=== PATIENT | female | born 2000 | race Caucasian/White ===

== ENCOUNTER 2020-01-02 14:01 | Emergency (ER) | payer SELFPAY ==
[2020-01-02] MEDS ORDERED: METOCLOPRAMIDE HCL 10 MG TABLET PO ONE (14:24)
--- NOTE | 2020-01-02 14:29 | ER Document Report ---
ED General - General Chief Complaint: Nausea/Vomiting Stated Complaint: VOMITING,CHILLS Time Seen by Provider: 01/02/20 14:13 Mode of Arrival: Ambulatory Information source: Patient Notes: Patient is a 19-year-old -Citizen Of The [place] female coming in today with 1 month of off-and-on nausea and vomiting, breast tenderness, and per nurses notes, actively trying to get . Patient states multiple home tests are negative. She is hoping that is actually positive and comes here to confirm. Also notes diffuse abdominal pain. - Related Data Allergies/Adverse Reactions: Penicillins Adverse Reaction (Verified 01/02/20 14:15) Past Medical History - General Information source: Patient - Social History Smoking Status: Current Some Day Smoker Drug Abuse: Marijuana Family History: Reviewed & Not Pertinent Patient has homicidal ideation: No Review of Systems - Review of Systems Notes: Constitutional: No fevers. No chills. EENT: No eye redness. No eye pain. No ear pain. No sore throat. Cardiovascular: No chest pain. No palpitations. Respiratory: No cough. No shortness of breath. No respiratory distress. Gastrointestinal: +abdominal pain. +n/v Genitourinary: Atraumatic. No lesions. No pain. No discharge. Denies vaginal bleeding Musculoskeletal: Atraumatic. No swelling. No deformities. Skin: No rash or lesions. Lymphatic: No swollen lymph nodes. Neurologic: No headache. No syncope. Psychiatric: No suicidal or homicidal ideation. Physical Exam - Vital signs Vitals: Temp Pulse Resp BP Pulse Ox 99.1 F 87 16 111/79 100 01/02/20 14:06 01/02/20 14:06 01/02/20 14:06 01/02/20 14:06 01/02/20 14:06 - Notes Notes: General: Well-developed, well-nourished. In no acute distress. Non-toxic appearing. Cardiac: Well-perfused. Regular rate and rhythm. No murmurs, rubs, or gallops. Pulmonary: No respiratory distress. No cyanosis. Bilateral lung vo are clear to auscultation. Abdominal: Diffuse tenderness to minimal palpation of the abdomen. No guarding or rebound. Nondistended. Bowel sounds present in all 4 quadrants HEENT: Head is atraumatic. Conjunctivae not reddened. No tearing. PERRL. EOMI. Orbits atraumatic. No periorbital swelling or erythema. Oropharynx is without erythema, swelling, or exudates. Neck: Supple. No adenopathy. No meningismus. Dermatologic: No rash. Chest: Atraumatic. No chest wall tenderness to palpation. Musculoskeletal: Moves all extremities well. No range of motion deficits. no muscular or joint tenderness. No paraspinal muscle tenderness. no midline spinal tenderness or step-off. Genitourinary: Examination deferred Neurologic: No gross neurologic deficits. Psychiatric: Normal mood. Course - Re-evaluation Re-evalutation: 01/02/20 16:37 Patient's labs completely normal. She is not . KUB is negative. We will give the patient some Reglan for her nausea. She can follow-up as an outpatient. - Vital Signs Vital signs: Temp Pulse Resp BP Pulse Ox 99.1 F 87 16 111/79 100 01/02/20 14:06 01/02/20 14:06 01/02/20 14:06 01/02/20 14:06 01/02/20 14:06 - Laboratory Result Diagrams: 01/02/20 14:33 01/02/20 14:33 Laboratory results interpreted by me: 01/02/20 01/02/20 14:33 14:33 Hgb 10.7 L Hct 32.3 L MCV 79 L MCH 25.9 L RDW 16.6 H BUN 5 L Discharge - Discharge Clinical Impression: Abdominal pain Qualifiers: Abdominal location: generalized Qualified Code(s): R10.84 - Generalized abdominal pain Nausea and vomiting Qualifiers: Vomiting type: unspecified Vomiting Intractability: non-intractable Qualified Code(s): R11.2 - Nausea with vomiting, unspecified Condition: Good Disposition: HOME, SELF-CARE Instructions: Abdominal Pain ([facility]), Antinausea Medication ([facility]), Reglan ([facility]) Prescriptions: Metoclopramide HCl [Reglan] 5 mg PO Q6HP PRN #12 tablet PRN Reason: For Nausea/Vomiting Forms: Return to Work
[2020-01-02 14:52] LABS: ABSOLUTE LYMPHOCYTES (AUTO) 2.1 10^3/uL (0.5-4.7); ABSOLUTE MONOCYTES (AUTO) 0.9 10^3/uL (0.1-1.4); ABSOLUTE NEUT (AUTO) 5.8 10^3/uL (1.7-8.2); BASOPHILS % (AUTO) 0.6 % (0-2); EOSINOPHILS % (AUTO) 0.3 % (0-6); HEMATOCRIT 32.3 % (36.0-47.0); HEMOGLOBIN 10.7 g/dL (12.0-15.5); LYMPHOCYTES % (AUTO) 23.7 % (13-45); MEAN CORPUSCULAR HEMOGLOBIN 25.9 pg (27.0-33.4); MEAN CORPUSCULAR VOLUME 79 fl (80-97); MONOCYTES % (AUTO) 9.8 % (3-13); PLATELET COUNT 387 10^3/uL (150-450); RED BLOOD COUNT 4.11 10^6/uL (3.72-5.28); RED CELL DISTRIBUTION WIDTH 16.6 % (11.5-14.0); SEGMENTED NEUTROPHILS % (AUTO) 65.6 % (42-78); TOTAL CELLS COUNTED % (AUTO) 100 %; WHITE BLOOD COUNT 8.9 10^3/uL (4.0-10.5)
[2020-01-02 15:08] LABS: ALBUMIN 3.7 g/dL (3.5-5.0); ALKALINE PHOSPHATASE 116 U/L (38-126); ANION GAP 10 (5-19); ASPARTATE AMINO TRANSFERASE 26 U/L (14-36); BILIRUBIN,DIRECT 0.3 mg/dL (0.0-0.4); BILIRUBIN,TOTAL 0.6 mg/dL (0.2-1.3); BLOOD UREA NITROGEN 5 mg/dL (7-20); CALCIUM 9.3 mg/dL (8.4-10.2); CARBON DIOXIDE 29 mmol/L (22-30); CHLORIDE 100 mmol/L (98-107); GLUCOSE 95 mg/dL (75-110); TOTAL PROTEIN 7.8 g/dL (6.3-8.2)
--- NOTE | 2020-01-02 16:22 | RADIOLOGY REPORT (SQ) ---
EXAM DESCRIPTION: KUB/ABDOMEN (SINGLE VIEW) IMAGES COMPLETED DATE/TIME: 01/02/2020 4:12 pm REASON FOR STUDY: diffuse abd pain COMPARISON: None. NUMBER OF VIEWS: One view. TECHNIQUE: Supine radiographic image of the abdomen acquired. LIMITATIONS: None. FINDINGS: BOWEL GAS PATTERN: Normal bowel gas pattern. No dilated loops. CALCIFICATIONS: No suspicious calcifications. SOFT TISSUES: No gross mass or suggestion of organomegaly. HARDWARE: None in the abdomen. BONES: No acute fracture. No worrisome bone lesions. OTHER: No other significant finding. IMPRESSION: NO RADIOGRAPHIC EVIDENCE FOR ACUTE ABDOMINAL DISEASE. TECHNICAL DOCUMENTATION: JOB ID: [id number] 2010 [employer]- All Rights Reserved Reading location - IP/workstation name: [email or web address]
[2020-01-02 16:51] VITALS: BP 103/64
== END 2020-01-02 16:52 | disposition home or self-care (01) ==
LOC: ER 14:01
DX: R11.2 Nausea with vomiting, unspecified (principal); N64.59 Other signs and symptoms in breast; R10.84 Generalized abdominal pain; F17.200 Nicotine dependence, unspecified, uncomplicated; F12.10 Cannabis abuse, uncomplicated; R10.817 Generalized abdominal tenderness
CPT/HCPCS: 36415; 74018; 80053; 83690; 84702; 85025; 99284

== ENCOUNTER 2020-01-15 03:04 | Inpatient (IN) | payer SELFPAY ==
[2020-01-15 06:53] LABS: ABSOLUTE BASOPHILS # (AUTO) 0.1 10^3/uL (0.0-0.2); ABSOLUTE LYMPHOCYTES (AUTO) 2.6 10^3/uL (0.5-4.7); ABSOLUTE MONOCYTES (AUTO) 0.8 10^3/uL (0.1-1.4); ABSOLUTE NEUT (AUTO) 8.4 10^3/uL (1.7-8.2); BASOPHILS % (AUTO) 0.4 % (0-2); EOSINOPHILS % (AUTO) 0.1 % (0-6); HEMATOCRIT 31.1 % (36.0-47.0); HEMOGLOBIN 10.3 g/dL (12.0-15.5); LYMPHOCYTES % (AUTO) 21.7 % (13-45); MEAN CORPUSCULAR HEMOGLOBIN 25.8 pg (27.0-33.4); MEAN CORPUSCULAR HGB CONC 33.3 g/dL (32.0-36.0); MEAN CORPUSCULAR VOLUME 78 fl (80-97); MONOCYTES % (AUTO) 6.5 % (3-13); PLATELET COUNT 438 10^3/uL (150-450); RED BLOOD COUNT 4.01 10^6/uL (3.72-5.28); RED CELL DISTRIBUTION WIDTH 17.2 % (11.5-14.0); SEGMENTED NEUTROPHILS % (AUTO) 71.3 % (42-78); TOTAL CELLS COUNTED % (AUTO) 100 %; WHITE BLOOD COUNT 11.8 10^3/uL (4.0-10.5)
[2020-01-15 07:12] LABS: ALBUMIN 3.5 g/dL (3.5-5.0); ALKALINE PHOSPHATASE 95 U/L (38-126); ANION GAP 11 (5-19); ASPARTATE AMINO TRANSFERASE 19 U/L (14-36); BILIRUBIN,DIRECT 0.3 mg/dL (0.0-0.4); BILIRUBIN,TOTAL 0.4 mg/dL (0.2-1.3); BLOOD UREA NITROGEN 6 mg/dL (7-20); CALCIUM 9.3 mg/dL (8.4-10.2); CARBON DIOXIDE 26 mmol/L (22-30); CHLORIDE 100 mmol/L (98-107); GLUCOSE 102 mg/dL (75-110); POTASSIUM 4.7 mmol/L (3.6-5.0); TOTAL PROTEIN 7.5 g/dL (6.3-8.2)
[2020-01-15] MEDS ORDERED: NORMAL SALINE 1000 ML 1,000 ML IV ONE (10:38)
--- NOTE | 2020-01-15 10:41 | ER Document Report ---
ED Medical Screen (RME) - General Chief Complaint: Abdominal Pain Stated Complaint: ABDOMINAL PAIN - HPI Notes: 01/15/20 10:39 19-year-old female presents to the emergency room today with complaints of stomach pain that started at 2 AM this morning, states she has had intermittent vomiting for the last month, she was seen once prior and placed on antiemetic pills. Reports she has not followed up with primary care provider or bundle cutter. Reports pain is worse after eating, states she can only keep down grits and soup. Has not tried any tiny-uxi-jalzrin medications for her symptoms. reports last time she vomited with this morning. Last bowel movement was Tuesday, she states she normally has a bowel movement once a week, denies any melena. Patient is unsure of last menstrual cycle as she only has 1- 2 cycles a year. Patient is not on any control. Denies any fevers or chills, chest pain, shortness of breath. I have greeted and performed a rapid initial assessment of this patient. A comprehensive ED assessment and evaluation of the patient, analysis of test results and completion of the medical decision making process will be conducted by additional ED providers. PHYSICAL EXAMINATION: GENERAL: Well-appearing, well-nourished and in no acute distress. CV: s1, s2 regular LUNGS: No respiratory distress abd: RUQ abd pain Musculoskeletal: Normal range of motion NEUROLOGICAL: Normal speech, normal gait. SKIN: Warm, Dry, normal turgor, no rashes or lesions noted. - Related Data Allergies/Adverse Reactions: Penicillins Adverse Reaction (Verified 01/15/20 10:37) Home Medications: ZOFRAN Past Medical History - Social History Frequency of alcohol use: Social Drug Abuse: None Physical Exam - Vital signs Vitals: Temp Pulse Resp BP Pulse Ox 98.1 F 93 18 141/82 H 98 01/15/20 03:18 01/15/20 03:18 01/15/20 03:18 01/15/20 03:18 01/15/20 03:18 Course - Vital Signs Vital signs: Temp Pulse Resp BP Pulse Ox 98.2 F 95 18 112/64 98 01/15/20 04:28 01/15/20 04:28 01/15/20 04:28 01/15/20 04:28 01/15/20 04:28 - Laboratory Result Diagrams: 01/15/20 06:25 01/15/20 06:25 Laboratory results interpreted by me: 01/15/20 01/15/20 06:25 06:25 WBC 11.8 H Hgb 10.3 L Hct 31.1 L MCV 78 L MCH 25.8 L RDW 17.2 H Absolute Neuts (auto) 8.4 H Sodium 136.6 L BUN 6 L
[2020-01-15 11:24] LABS: APPEARANCE,URINE CLOUDY; BILIRUBIN,URINE NEGATIVE (NEGATIVE); COLOR,URINE YELLOW; GLUCOSE, URINE NEGATIVE (NEGATIVE); KETONES,URINE NEGATIVE (NEGATIVE); LEUKOCYTE ESTERASE,URINE LARGE (NEGATIVE); NITRITE,URINE NEGATIVE (NEGATIVE); PROTEIN,URINE 30 mg/dL (NEGATIVE); URINE SPECIFIC GRAVITY 1.019
--- NOTE | 2020-01-15 12:51 | RADIOLOGY REPORT (SQ) ---
EXAM DESCRIPTION: U/S ABDOMEN LIMITED W/O DOP IMAGES COMPLETED DATE/TIME: 01/15/2020 12:38 pm REASON FOR STUDY: RUQ abd pain x 1 m, worse after eating COMPARISON: None. TECHNIQUE: Dynamic and static grayscale images acquired of the abdomen and recorded on PACS. Additio nal selected color Doppler and spectral images recorded. LIMITATIONS: None. FINDINGS: PANCREAS: No masses. Visualized pancreatic duct normal caliber. LIVER: Normal size Echo texture normal. No focal masses. LIVER VASCULATURE: Normal directional flow of the main portal vein and hepatic veins. GALLBLADDER: Multiple stones. Gallbladder wall 4 mm. Trace of pericholecystic fluid. ULTRASOUND-DETECTED RONQUILLO'S SIGN: Positive. INTRAHEPATIC DUCTS AND COMMON DUCT: CBD and intrahepatic ducts normal caliber. No filling defects. INFERIOR VENA CAVA: Normal flow. AORTA: No aneurysm. RIGHT KIDNEY: Normal size. Normal echogenicity. No solid or suspicious masses. No hydronephros is. No calcifications. PERITONEAL AND RIGHT PLEURAL SPACE: No ascites or effusions. OTHER: No other significant findings. IMPRESSION: Suspect acute cholecystitis. TECHNICAL DOCUMENTATION: JOB ID: [id number] 2010 [employer]- All Rights Reserved Reading location - IP/workstation name: [email or web address]
[2020-01-15] MEDS ORDERED: LEVOFLOXACIN 750 MG/D5W RTU 750 MG/150 ML RTUPB IV ONE (15:19)
--- NOTE | 2020-01-15 15:25 | ER Document Report ---
ED General - General Chief Complaint: Abdominal Pain Stated Complaint: ABDOMINAL PAIN Time Seen by Provider: 01/15/20 14:52 Mode of Arrival: Ambulatory Information source: Patient Notes: 19-year-old -[place] female comes in today with a history of upper abdominal pain and intractable vomiting is started around 2:00 this morning. She reports subjective fevers and chills. States having cold sweats now. At this time no longer nauseated. - Related Data Allergies/Adverse Reactions: Penicillins Adverse Reaction (Verified 01/15/20 10:37) Home Medications: ZOFRAN Past Medical History - Social History Smoking Status: Current Every Day Smoker Frequency of alcohol use: Social Drug Abuse: None Family History: Reviewed & Not Pertinent Review of Systems - Review of Systems Notes: Constitutional: Positive subjective fevers and chills EENT: No eye redness. No eye pain. No ear pain. No sore throat. Cardiovascular: No chest pain. No palpitations. Respiratory: No cough. No shortness of breath. No respiratory distress. Gastrointestinal: As it for abdominal pain, nausea, vomiting Genitourinary: Atraumatic. No lesions. No pain. No discharge. Musculoskeletal: Atraumatic. No swelling. No deformities. Skin: No rash or lesions. Lymphatic: No swollen lymph nodes. Neurologic: No headache. No syncope. Psychiatric: No suicidal or homicidal ideation. Physical Exam - Vital signs Vitals: Temp Pulse Resp BP Pulse Ox 98.1 F 93 18 141/82 H 98 01/15/20 03:18 01/15/20 03:18 01/15/20 03:18 01/15/20 03:18 01/15/20 03:18 - Notes Notes: General: Well-developed, well-nourished. In no acute distress. Non-toxic appearing. Cardiac: Well-perfused. Regular rate and rhythm. No murmurs, rubs, or gallops. Pulmonary: No respiratory distress. No cyanosis. Bilateral lung fiels are clear to auscultation. Abdominal: Positive right upper quadrant tenderness to palpation. No guarding or rebound. Sounds are present in all 4 quadrants. HEENT: Head is atraumatic. Conjunctivae not reddened. No tearing. PERRL. EOMI. Orbits atraumatic. No periorbital swelling or erythema. Oropharynx is without erythema, swelling, or exudates. Neck: Supple. No adenopathy. No meningismus. Dermatologic: Warm with good turgor. No rash. Atraumatic. Chest: Atraumatic. No chest wall tenderness to palpation. Musculoskeletal: Moves all extremities well. No range of motion deficits. no muscular or joint tenderness. No paraspinal muscle tenderness. no midline spinal tenderness or step-off. Genitourinary: Examination deferred Neurologic: No gross neurologic deficits. Psychiatric: Normal mood. Course - Re-evaluation Re-evalutation: 01/15/20 15:24 Findings concerning for acute cholecystitis. Discussed case with Dr. Farfan, ER attending. Discussed case with general surgeon Dr. Restrepo will come and assess the patient. Requested a rapid Covid test. Also request the patient be moved out of the hallway into another room. Charge nurse aware. 01/15/20 17:03 Patient was evaluated by Dr. Restrepo. He does not believe that she has cholecystitis but will admit her for biliary colic. - Vital Signs Vital signs: Temp Pulse Resp BP Pulse Ox 98 F 100 18 115/69 100 01/15/20 11:04 01/15/20 11:04 01/15/20 11:04 01/15/20 11:04 01/15/20 11:04 - Laboratory Result Diagrams: 01/15/20 06:25 01/15/20 06:25 Laboratory results interpreted by me: 01/15/20 01/15/20 01/15/20 06:25 06:25 11:05 WBC 11.8 H Hgb 10.3 L Hct 31.1 L MCV 78 L MCH 25.8 L RDW 17.2 H Absolute Neuts (auto) 8.4 H Sodium 136.6 L BUN 6 L Urine Protein 30 H Urine Urobilinogen 4.0 H Ur Leukocyte Esterase LARGE H Discharge - Discharge Clinical Impression: Biliary colic Condition: Good Disposition: ADMITTED OBSERVATION
[2020-01-15] MEDS ORDERED: RINGERS SOLUTION,LACTATED 1,000 ML IV ONE (15:29)
--- NOTE | 2020-01-15 17:36 | PDOC H&P ---
History of Present Illness History of Present Illness: LAURYN SELF is a 19 year old female 19-year-old -[place] female comes in today with a history of upper abdominal pain and intractable vomiting is started around 2:00 this morning. She reports subjective fevers and chills. States having cold sweats now. At this time no longer nauseated. Social History Smoking Status: Current Every Day Smoker Family History Family History: Reviewed & Not Pertinent Parental Family History Reviewed: No Children Family History Reviewed: NA Sibling(s) Family History Reviewed.: NA Medication/Allergy Home Medications: Metoclopramide HCl [Reglan] 5 mg PO Q6HP PRN #12 tablet 01/02/20 Allergies/Adverse Reactions: Penicillins Adverse Reaction (Verified 01/15/20 10:37) Review of Systems Constitutional: PRESENT: fatigue Eyes: ABSENT: as per HPI, visual disturbances, other Ears: ABSENT: as per HPI, hearing changes, other Nose, Mouth, and Throat: ABSENT: as per HPI, headache(s), mouth pain, sore throat, vertigo, other Breasts: ABSENT: as per HPI, other Cardiovascular: ABSENT: as per HPI, chest pain, dyspnea on exertion, edema, orthropnea, palpitations, other Respiratory: ABSENT: as per HPI, cough, dyspnea, hemoptysis, sputum, other Gastrointestinal: PRESENT: as per HPI Genitourinary: ABSENT: as per HPI, difficulty urinating, dysuria, hematuria, nocturia, other Musculoskeletal: ABSENT: as per HPI, back pain, deformity, joint swelling, muscle weakness, other Integumentary: ABSENT: as per HPI, diaphoresis, erythema, lesions, pruritus, rash, wounds, other Neurological: ABSENT: as per HPI, abnormal gait, abnormal movements, abnormal speech, confusion, convulsions, dizziness, focal weakness, frequent falls, lack of coordination, memory loss, numbness, paresthesias, restless legs, syncope, tingling, tremor(s), vertigo, weakness, other Psychiatric: ABSENT: as per HPI, anxiety, depression, hallucinations, homidical ideation, suicidal ideation, other Endocrine: ABSENT: as per HPI, cold intolerance, flushing, heat intolerance, menstrual abnormalities, polydipsia, polyphagia, polyuria, other Hematologic/Lymphatic: ABSENT: as per HPI, easy bleeding, easy bruising, lymphadenopathy, other Allergic/Immunologic: ABSENT: as per HPI, seasonal rhinorrhea, other Physical Exam Vital Signs: Temp Pulse Resp BP Pulse Ox 98 F 100 18 115/69 100 01/15/20 11:04 01/15/20 11:04 01/15/20 11:04 01/15/20 11:04 01/15/20 11:04 Intake & Output 01/14/20 01/15/20 01/16/20 06:59 06:59 06:59 Weight 89.1 kg General appearance: PRESENT: mild distress Head exam: PRESENT: normocephalic Eye exam: PRESENT: EOMI Ear exam: PRESENT: normal external ear exam Mouth exam: PRESENT: moist Neck exam: PRESENT: full ROM Respiratory exam: PRESENT: clear to auscultation eliud Cardiovascular exam: PRESENT: RRR Pulses: PRESENT: normal radial pulses, normal femoral pulses Vascular exam: PRESENT: normal capillary refill Breast: PRESENT: Normal GI/Abdominal exam: PRESENT: tenderness - ruq Rectal exam: PRESENT: deferred Extremities exam: PRESENT: full ROM Musculoskeletal exam: PRESENT: full ROM Neurological exam: PRESENT: alert, awake, oriented to person, oriented to place Psychiatric exam: PRESENT: appropriate affect Skin exam: PRESENT: dry Results Laboratory Results: 01/15/20 06:25 01/15/20 06:25 01/15/20 01/15/20 01/15/20 06:25 06:25 11:05 WBC 11.8 H RBC 4.01 Hgb 10.3 L Hct 31.1 L MCV 78 L MCH 25.8 L MCHC 33.3 RDW 17.2 H Plt Count 438 Seg Neutrophils % 71.3 Sodium 136.6 L Potassium 4.7 Chloride 100 Carbon Dioxide 26 Anion Gap 11 BUN 6 L Creatinine 0.76 Est GFR ( Amer) > 60 Glucose 102 Calcium 9.3 Total Bilirubin 0.4 AST 19 Alkaline Phosphatase 95 Total Protein 7.5 Albumin 3.5 Lipase 59.9 Urine Color YELLOW Urine Appearance CLOUDY Urine pH 6.0 Ur Specific [place] 1.019 Urine Protein 30 H Urine Glucose (UA) NEGATIVE Urine Ketones NEGATIVE Urine Blood NEGATIVE Urine Nitrite NEGATIVE Ur Leukocyte Esterase LARGE H Urine WBC (Auto) 21 Urine RBC (Auto) 4 Impressions: Abdomen Ultrasound 01/15/20 10:38 IMPRESSION: Suspect acute cholecystitis. Assessment & Plan - Time Anticipated Discharge Disposition: Home, Self Care Anticipated Discharge Timeframe: unk - Plan Summary Plan Summary: acute cholecystitis plan iv abx repeat labs in am npo will need lap leni
[2020-01-15] MEDS ORDERED: ONDANSETRON HCL INJ/PF 4 MG/2 ML SDV IV PRN (18:05)
[2020-01-15] MEDS: METRONIDAZOLE 500 MG/NS RTU 500 MG/100 ML RTUPB IV SCH (20:07)
[2020-01-15] MEDS: FAMOTIDINE INJ/PF 20 MG/2 ML SDV IV SCH (22:32)
[2020-01-15] MEDS: CEFAZOLIN 1 GM/D5W RTU 1 GM/50 ML RTUPB IV SCH (22:32)
[2020-01-15] MEDS ORDERED: ACETAMINOPHEN 325 MG TABLET PO ONE ×2 (23:15→23:30)
[2020-01-15] MEDS: POTASSI CL 20 MEQ/1/2NS 1L 20 MEQ/1,000 ML RTUINJ IV PRN (23:34)
[2020-01-16] MEDS: METRONIDAZOLE 500 MG/NS RTU 500 MG/100 ML RTUPB IV SCH ×3 (02:28→18:28)
[2020-01-16] MEDS: CEFAZOLIN 1 GM/D5W RTU 1 GM/50 ML RTUPB IV SCH ×3 (05:33→22:17)
--- NOTE | 2020-01-16 08:29 | PDOC PROGRESS REPORT ---
Subjective Progress Note for:: 01/16/20 Subjective:: 19 y/o F with acute cholecystitis. She continues to report right upper quadrant pain. Pain meds appear to be helping. She denies chest pain, shortness of breath, dizziness, orthostasis, weakness, fatigue, fevers, chills, melena, hematochezia, hematemesis, blurry vision, malaise, seizures. Reason For Visit: ACUTE CHOLECYSTITIS Physical Exam Vital Signs: Temp Pulse Resp BP Pulse Ox 98.8 F 87 18 115/62 100 01/16/20 05:05 01/16/20 05:05 01/16/20 05:05 01/16/20 05:05 01/16/20 05:05 Intake & Output 01/15/20 01/16/20 01/17/20 06:59 06:59 06:59 Intake Total 1450 Balance 1450 Weight 89.1 kg 84.1 kg General appearance: PRESENT: no acute distress, cooperative Head exam: PRESENT: atraumatic, normocephalic Eye exam: PRESENT: EOMI, PERRLA. ABSENT: scleral icterus Mouth exam: PRESENT: moist, neck supple Neck exam: ABSENT: meningismus, tenderness, thyromegaly, tracheal deviation Respiratory exam: PRESENT: unlabored. ABSENT: tachypnea, wheezes Cardiovascular exam: ABSENT: tachycardia GI/Abdominal exam: PRESENT: soft, tenderness - Right upper quadrant. ABSENT: distended Rectal exam: PRESENT: deferred Extremities exam: ABSENT: clubbing Musculoskeletal exam: ABSENT: deformity Neurological exam: PRESENT: alert, awake, oriented to person, oriented to place, oriented to time, oriented to situation, CN II-XII grossly intact. ABSENT: motor sensory deficit Psychiatric exam: ABSENT: agitated, anxious, depressed Focused psych exam: ABSENT: delusional Skin exam: ABSENT: cyanosis, erythema, jaundice Results Laboratory Results: 01/15/20 06:25 01/15/20 06:25 01/15/20 11:05 Urine Color YELLOW Urine Appearance CLOUDY Urine pH 6.0 Ur Specific [place] 1.019 Urine Protein 30 H Urine Glucose (UA) NEGATIVE Urine Ketones NEGATIVE Urine Blood NEGATIVE Urine Nitrite NEGATIVE Ur Leukocyte Esterase LARGE H Urine WBC (Auto) 21 Urine RBC (Auto) 4 Impressions: Abdomen Ultrasound 01/15/20 10:38 IMPRESSION: Suspect acute cholecystitis. Assessment & Plan - Diagnosis (1) Acute cholecystitis Is this a current diagnosis for this admission?: Yes - Time Anticipated Discharge Disposition: Home, Self Care Anticipated Discharge Timeframe: within 48 hours - Plan Summary Plan Summary: 19-year-old female with acute cholecystitis. Continue antibiotics. Plan for surgical intervention as soon as is feasible. Likely tomorrow. Risk/benefits discussed, informed consent obtained, and all questions answered.
[2020-01-16 08:39] LABS: ABSOLUTE BASOPHILS # (AUTO) 0.1 10^3/uL (0.0-0.2); ABSOLUTE LYMPHOCYTES (AUTO) 2.4 10^3/uL (0.5-4.7); ABSOLUTE MONOCYTES (AUTO) 0.8 10^3/uL (0.1-1.4); ABSOLUTE NEUT (AUTO) 5.5 10^3/uL (1.7-8.2); EOSINOPHILS % (AUTO) 0.4 % (0-6); HEMATOCRIT 29.6 % (36.0-47.0); HEMOGLOBIN 9.6 g/dL (12.0-15.5); MEAN CORPUSCULAR HEMOGLOBIN 25.1 pg (27.0-33.4); MEAN CORPUSCULAR HGB CONC 32.6 g/dL (32.0-36.0); MEAN CORPUSCULAR VOLUME 77 fl (80-97); MONOCYTES % (AUTO) 8.5 % (3-13); PLATELET COUNT 351 10^3/uL (150-450); RED BLOOD COUNT 3.85 10^6/uL (3.72-5.28); RED CELL DISTRIBUTION WIDTH 16.8 % (11.5-14.0); SEGMENTED NEUTROPHILS % (AUTO) 63.1 % (42-78); TOTAL CELLS COUNTED % (AUTO) 100 %; WHITE BLOOD COUNT 8.8 10^3/uL (4.0-10.5)
[2020-01-16 09:14] LABS: ALKALINE PHOSPHATASE 78 U/L (38-126); ASPARTATE AMINO TRANSFERASE 15 U/L (14-36); BILIRUBIN,DIRECT 0.4 mg/dL (0.0-0.4); BILIRUBIN,TOTAL 0.4 mg/dL (0.2-1.3); TOTAL PROTEIN 6.6 g/dL (6.3-8.2)
[2020-01-16] MEDS: FAMOTIDINE INJ/PF 20 MG/2 ML SDV IV SCH ×2 (10:18→22:17)
[2020-01-16] MEDS: POTASSI CL 20 MEQ/1/2NS 1L 20 MEQ/1,000 ML RTUINJ IV PRN (12:25)
[2020-01-16] MEDS ORDERED: DEXTROSE 40% GEL 15 GM TUBE PO PRN ×2 (19:14)
[2020-01-16] MEDS ORDERED: GLUCAGON,HUMAN RECOMB 1 MG INJ SUBCUT PRN (19:14)
[2020-01-16] MEDS ORDERED: DEXTROSE 50%-WATER 25 GM/50 ML DISP.SYRIN IV PRN ×2 (19:14)
[2020-01-17] MEDS: METRONIDAZOLE 500 MG/NS RTU 500 MG/100 ML RTUPB IV SCH (01:07)
[2020-01-17] MEDS: POTASSI CL 20 MEQ/1/2NS 1L 20 MEQ/1,000 ML RTUINJ IV PRN (01:07)
[2020-01-17] MEDS ORDERED: CEFAZOLIN 1 GM/D5W RTU 1 GM/50 ML RTUPB IV ONE (06:25)
[2020-01-17] MEDS: CEFAZOLIN 1 GM/D5W RTU 1 GM/50 ML RTUPB IV SCH (06:28)
[2020-01-17] MEDS ORDERED: FENTANYL CITRATE INJ/PF 100 MCG/2 ML AMPUL ONE ×2 (07:02→08:51)
[2020-01-17] MEDS ORDERED: MIDAZOLAM 2 MG/2 ML INJ ONE (07:03)
[2020-01-17] MEDS ORDERED: PROPOFOL INJ 200 MG/20 ML VIAL IV ONE (07:03)
[2020-01-17] MEDS ORDERED: LIDOCAINE 2% INJ (20 MG/ML) 20 ML MDV ONE (07:04)
[2020-01-17] MEDS ORDERED: BUPIVACAINE INJ/PF LIPOSOME/PF 266 MG/20 ML SDV ONE (07:07)
[2020-01-17] MEDS ORDERED: FENTANYL CITRATE INJ/PF 100 MCG/2 ML AMPUL IV PRN ×3 (08:01)
[2020-01-17] MEDS ORDERED: MORPHINE SULFATE 10 MG/ML INJ IV PRN (08:01)
[2020-01-17] MEDS ORDERED: PROMETHAZINE HCL INJ 25 MG/1 ML VIAL IV PRN (08:01)
[2020-01-17] MEDS ORDERED: DIPHENHYDRAMINE HCL 50 MG/ML VIAL IV PRN (08:01)
[2020-01-17] MEDS ORDERED: MEPERIDINE HCL/PF INJ 25 MG/1 ML DISP.SYRIN IV PRN (08:01)
[2020-01-17] MEDS ORDERED: ONDANSETRON HCL INJ/PF 4 MG/2 ML SDV IV PRN (08:01)
--- NOTE | 2020-01-17 08:44 | Operative Report ---
Nonrecallable Operative Report DATE OF SURGERY: 01/17/20 PREOPERATIVE DIAGNOSIS: cholecystitis POSTOPERATIVE DIAGNOSIS: same OPERATION: laparoscopic cholecystectomy SURGEON: LINDA BUSTAMANTE KIER DRIER: ANNA LOOMIS ANESTHESIA: GA TISSUE REMOVED OR ALTERED: gallbladder COMPLICATIONS: none ESTIMATED BLOOD LOSS: 10cc INTRAOPERATIVE FINDINGS: see note PROCEDURE: After obtaining informed consent, the patient was taken to the operating room. General Anesthesia was induced; the arms were extended, and the abdomen was exposed, and prepped and draped in a sterile fashion. Instrumentation was set up for laparoscopic cholecystectomy. Surgical plan and surgical timeout were conducted. A vertical incision was made above the umbilicus, and a verres needle was inserted uneventfully into the peritoneal cavity. Pneumoperitoneum was established. The verres needle was removed and a 10 mm trocar was inserted and a 10 mm laparoscope was inserted. Visualization of the peritoneal cavity confirmed safe uneventful entry. Under direct visualization 3 additional 5 mm ports were established, one in the subxiphoid position and second in the subcostal position. Visualization of the hepatobiliary anatomy revealed no anatomic variations. A grasper was placed on the fundus of the gallbladder and the gallbladder is elevated over the right surface of the liver; a second grasper was used to grasp the infundibulum of the gallbladder. The neck of the gallbladder and junction with the cystic duct was dissected out. The Cystic artery was in its usual location medial and cephalad to the cystic duct. The cystic artery was surrounded with a right angle clamp, clipped twice proximally and divided with laparoscopic scissors. We now opened the triangle of [place] by dividing the peritoneal reflection on both the medial and lateral sides of the cystic duct infundibular junction. The critical view was obtained. We now milked the cystic duct of any possible stones, clipped the cystic duct approximately 2 times once distally and divided with scissors. The gallbladder was now removed from the undersurface of the liver using hook cautery dissection. Graspers were repositioned and the gallbladder was removed uneventfully from the abdominal cavity through the super umbilical port site incision. The specimen was examined, then passed off to pathology for permanent analysis. We returned to the peritoneal cavity check for bleeding, and evidence of bile leak, and there was none. We Confirmed satisfactory placement of clips on cystic duct and cystic artery were secured . At this point we felt the operation was complete. The subcutaneous tissue was then anesthetized with quarter percent Marcaine Sponge and needle counts are correct. All ports removed under direct visualization pneumoperitoneum evacuated, and 5 mm port wounds closed with 3-0 Vicryl suture, benzoin and Steri-Strips. The patient was extubated, and taken to the recovery room in stable condition. JENNI Madison was present for the entire case for help with wound retraction wound closure
--- NOTE | 2020-01-17 08:48 | PDOC DISCHARGE SUMMARY ---
General - Admit/Disc Date/PCP Admission Date/Primary Care Provider: 01/15/20 18:43 Discharge Date: 01/17/20 - Discharge Diagnosis Final Diagnosis: Acute cholecystitis - Assessment Summary: Patient was admitted to the hospital with diagnosis of acute cholecystitis. She was taken to the operating room on hospital day 2 for elective laparoscopic cholecystectomy. She underwent the procedure and tolerated well. She had no postoperative complications. She started on a clear liquid diet and able to be discharged home on the day of surgery. She will be given a follow-up appointment in 7 to 10 days after surgery the surgery clinic. - Additional Information Resuscitation Status: Full Code Discharge Diet: As Tolerated Discharge Activity: Activity As Tolerated, No Lifting Over 10 Pounds Prescriptions: Hydrocodone/Acetaminophen [[place] 10-325 mg Tablet] 1 tab PO Q6HP PRN #15 tablet PRN Reason: Home Medications: Metoclopramide HCl [Reglan] 5 mg PO Q6HP PRN #12 tablet 01/02/20 Hydrocodone/Acetaminophen [[place] 10-325 mg Tablet] 1 tab PO Q6HP PRN #15 tablet 01/17/20 History of Present Illiness History of Present Illness: LAURYN SELF is a 19 year old female 19-year-old -N[place] female comes in today with a history of upper abdominal pain and intractable vomiting is started around 2:00 this morning. She reports subjective fevers and chills. States having cold sweats now. At this time no longer nauseated. Physical Exam Vital Signs: Temp Pulse Resp BP Pulse Ox 98.1 F 85 17 88/44 L 100 01/17/20 03:05 01/17/20 03:05 01/17/20 03:05 01/17/20 03:05 01/17/20 03:05 Intake & Output 01/16/20 01/17/20 01/18/20 06:59 06:59 06:59 Intake Total 1450 3000 200 Balance 1450 3000 200 Weight 84.1 kg 92.9 kg Results Laboratory Results: WBC 8.8 10^3/uL (4.0-10.5) 01/16/20 07:40 RBC 3.85 10^6/uL (3.72-5.28) 01/16/20 07:40 Hgb 9.6 g/dL (12.0-15.5) L 01/16/20 07:40 Hct 29.6 % (36.0-47.0) L 01/16/20 07:40 MCV 77 fl (80-97) L 01/16/20 07:40 MCH 25.1 pg (27.0-33.4) L 01/16/20 07:40 MCHC 32.6 g/dL (32.0-36.0) 01/16/20 07:40 RDW 16.8 % (11.5-14.0) H 01/16/20 07:40 Plt Count 351 10^3/uL (150-450) 01/16/20 07:40 Lymph % (Auto) 27.0 % (13-45) 01/16/20 07:40 [place] % (Auto) 8.5 % (3-13) 01/16/20 07:40 Eos % (Auto) 0.4 % (0-6) 01/16/20 07:40 Baso % (Auto) 1.0 % (0-2) 01/16/20 07:40 Absolute Neuts (auto) 5.5 10^3/uL (1.7-8.2) 01/16/20 07:40 Absolute Lymphs (auto) 2.4 10^3/uL (0.5-4.7) 01/16/20 07:40 Absolute Monos (auto) 0.8 10^3/uL (0.1-1.4) 01/16/20 07:40 Absolute Eos (auto) 0.0 10^3/uL (0.0-0.6) 01/16/20 07:40 Absolute Basos (auto) 0.1 10^3/uL (0.0-0.2) 01/16/20 07:40 Seg Neutrophils % 63.1 % (42-78) 01/16/20 07:40 Sodium 136.6 mmol/L (137-145) L 01/15/20 06:25 Potassium 4.7 mmol/L (3.6-5.0) 01/15/20 06:25 Chloride 100 mmol/L (98-107) 01/15/20 06:25 Carbon Dioxide 26 mmol/L (22-30) 01/15/20 06:25 Anion Gap 11 (5-19) 01/15/20 06:25 BUN 6 mg/dL (7-20) L 01/15/20 06:25 Creatinine 0.76 mg/dL (0.52-1.25) 01/15/20 06:25 Est GFR ( Amer) > 60 (>60) 01/15/20 06:25 Est GFR (MDRD) Non-Af > 60 (>60) 01/15/20 06:25 Glucose 102 mg/dL (75-110) 01/15/20 06:25 Calcium 9.3 mg/dL (8.4-10.2) 01/15/20 06:25 Total Bilirubin 0.4 mg/dL (0.2-1.3) 01/16/20 07:40 Direct Bilirubin 0.4 mg/dL (0.0-0.4) 01/16/20 07:40 Neonat Total Bilirubin Not Reportable 01/16/20 07:40 Neonat Direct Bilirubin Not Reportable 01/16/20 07:40 Neonat Indirect Bili Not Reportable 01/16/20 07:40 AST 15 U/L (14-36) 01/16/20 07:40 ALT 14 U/L (<35) 01/16/20 07:40 Alkaline Phosphatase 78 U/L (38-126) 01/16/20 07:40 Total Protein 6.6 g/dL (6.3-8.2) 01/16/20 07:40 Albumin 3.0 g/dL (3.5-5.0) L 01/16/20 07:40 Lipase 66.2 U/L (23-300) 01/16/20 07:40 Beta HCG, Quant < 2.39 mIU/mL (0.0-6.15) 01/15/20 06:25 Beta HCG, Quant < 2.39 mIU/mL (0.0-6.15) 01/15/20 06:25 Total Beta HCG NEGATIVE (NEGATIVE) 01/15/20 06:25 Total Beta HCG NEGATIVE (NEGATIVE) 01/15/20 06:25 Urine Color YELLOW 01/15/20 11:05 Urine Appearance CLOUDY 01/15/20 11:05 Urine pH 6.0 (5.0-9.0) 01/15/20 11:05 Ur Specific [place] 1.019 01/15/20 11:05 Urine Protein 30 mg/dL (NEGATIVE) H 01/15/20 11:05 Urine Glucose (UA) NEGATIVE mg/dL (NEGATIVE) 01/15/20 11:05 Urine Ketones NEGATIVE mg/dL (NEGATIVE) 01/15/20 11:05 Urine Blood NEGATIVE (NEGATIVE) 01/15/20 11:05 Urine Nitrite NEGATIVE (NEGATIVE) 01/15/20 11:05 Urine Bilirubin NEGATIVE (NEGATIVE) 01/15/20 11:05 Urine Urobilinogen 4.0 mg/dL (<2.0) H 01/15/20 11:05 Ur Leukocyte Esterase LARGE (NEGATIVE) H 01/15/20 11:05 Urine WBC (Auto) 21 /HPF 01/15/20 11:05 Urine RBC (Auto) 4 /HPF 01/15/20 11:05 Squamous Epi Cells Auto 12 /HPF 01/15/20 11:05 Urine Mucus (Auto) MANY /LPF 01/15/20 11:05 Urine Ascorbic Acid NEGATIVE (NEGATIVE) 01/15/20 11:05 SARS-CoV-2 (PCR) NEGATIVE (NEGATIVE) 01/15/20 15:50 Impressions: Abdomen Ultrasound 01/15/20 10:38 IMPRESSION: Suspect acute cholecystitis.
[2020-01-17] MEDS: FAMOTIDINE INJ/PF 20 MG/2 ML SDV IV SCH (10:25)
[2020-01-17] MEDS ORDERED: GLYCOPYRROLATE 1 MG/5 ML VIAL ONE (10:56)
[2020-01-17] MEDS ORDERED: DEXAMETHASONE SOD PHOSPHATE INJ 4 MG/1 ML VIAL ONE (10:56)
[2020-01-17] MEDS ORDERED: KETOROLAC TROMETHAMINE 60 MG/2 ML SDV ONE (10:56)
[2020-01-17] MEDS ORDERED: NEOSTIGMINE METHYLSULFATE 10 MG/10 ML VIAL ONE (10:56)
[2020-01-17] MEDS ORDERED: ONDANSETRON HCL INJ/PF 4 MG/2 ML SDV ONE (10:56)
[2020-01-17 13:49] VITALS: BP 103/67
== END 2020-01-17 14:55 | disposition home or self-care (01) | DRG 419 ==
LOC: ER 03:04 → EH 18:43 → 2N 20:47
PROVIDERS: ATTEND Surgery
PROC: 0FT44ZZ Resection of Gallbladder, Percutaneous Endoscopic Approach (ICD-10-PCS; principal; 2020-01-17 07:30)
DX: K81.0 Acute cholecystitis (principal); F17.200 Nicotine dependence, unspecified, uncomplicated; Z88.0 Allergy status to penicillin
CPT/HCPCS: 36415; 76705; 790; 80053; 80076; 81001; 83690; 84702; 85025; 87040; 87635; 88304; 96361; 96365; 96366; 99285; C9290; C9803; J0690; J1100; J1885; J1956; J2250; J2405; J2704; J2710; J3010; J3480; J3490; J7120; S0028